=== PATIENT | male | born 1990 | race Caucasian/White ===

== ENCOUNTER → 2024-11-11 06:51 | Outpatient (CLI) | payer OTHER, SELFPAY ==
--- NOTE | 2024-11-11 06:56 | DI.MRI.S_ITS ---
PROCEDURE: MR KNEE RT WO CON INDICATIONS: PAIN IN RT KNEE.. TECHNIQUE: Noncontrast sagittal PD fast spin echo and T2 fast spin echo with fat saturation, sagittal 3-D FLASH with fat saturation; coronal T1 spin echo and PD fast spin echo with fat saturation, and axial PD fast spin echo with fat saturation through the knee. COMPARISON: None. FINDINGS: Image quality: Diagnostic Menisci: Medial: Small oblique tear at the posterior horn Small adjacent para meniscal cysts Lateral: Small horizontal component in the body Small vertical tear of the posterior horn periphery involving the inferior popliteal fascicles Cruciate ligaments: Intact Medial structures: MCL: Intact Pes anserine tendons: Intact Semimembranosus: Mild insertional tendinopathy Lateral structures: LCL: Mild edema at the insertion and origin Biceps femoris: Mild insertional edema IT band: Intact Popliteus tendon: Intact Anterior structures: Extensor mechanism: Intact Fat pads: Mild edema and quadriceps fat pad Medial retinaculum: Intact. Trochlea: Borderline TT TG distance at 1.4 cm Bone and joint: Bones: No acute fracture Cartilage: Mild patellar cartilage thinning. No significant defect seen elsewhere Mild scattered osteophytes. Joint space: Small joint effusion Yuen's cyst: None Soft tissues: No significant vascular or other soft tissue pathology. IMPRESSION: Small oblique tear of the medial meniscal posterior horn with small adjacent cysts. Suspect small vertical tear and focal edema in the inferior meniscal popliteal fascicles. Adjacent probable sprain of the LCL and tendinopathy of the biceps femoris insertion. Intact cruciate ligaments. Early knee arthrosis, with mild patellar cartilage thinning and mild osteophytes. Mild insertional tendinopathy of the semimembranosus. Mild quadriceps fat pad edema, which can be associated with impingement Small joint effusion Dictated by: Tawanda Chaparro M.D. on 11/11/2024 at 21:55 Approved by: Tawanda Chaparro M.D. on 11/11/2024 at 22:01
== END ==
LOC: MRI 06:54
PROVIDERS: PCP Student in an Organized Health Care Education/Training Program; Referring Provider Student in an Organized Health Care Education/Training Program; Visit Provider Student in an Organized Health Care Education/Training Program
DX: S83.241A Other tear of medial meniscus, current injury, right knee, initial encounter (principal); M17.11 Unilateral primary osteoarthritis, right knee; M25.461 Effusion, right knee; M25.569 Pain in unspecified knee
CPT/HCPCS: 73721